=== PATIENT | male | born 2000 | race Caucasian/White ===

== ENCOUNTER 2019-04-30 14:39 | Emergency (ER) | payer SELFPAY ==
[~2019-04-30] VITALS: Ht 193 cm; Wt 125.0 kg
[2019-04-30 15:30] VITALS: BP 129/66
--- NOTE | 2019-04-30 15:51 | PHYS DOC ---
Past Medical History Past Medical History: No Pertinent History Past Surgical History: Other Additional Past Surgical Histo: testicle surgery @1 years of age Alcohol Use: Occasionally Adult General Chief Complaint Chief Complaint: EYE PROBLEMS HPI HPI Patient is a 18 year old male who presents with patient states that 2100 last night he saw flashing light in the right eye and then everything went dark. States he went down toward his mother and told him to go back to sleep and see how it is in the morning. States this morning when he opened He saw only shadows in some light. States the light is somewhat headache. States that he has a generalized headache of 5 out of 10. Denies dizziness, nausea, vomiting, abdominal pain, diarrhea, fevers, recent illness, numbness or tingling, weaknesses, chest pain, shortness of breath. Review of Systems Review of Systems HENT: Right eye vision loss. Denies nasal congestion or sore throat [] All other systems were reviewed and found to be within normal limits, except as documented in this note. Physical Exam Physical Exam Constitutional: Well developed, well nourished, no acute distress, non-toxic appearance. [] HENT: Normocephalic, atraumatic, bilateral external ears normal, oropharynx moist, no oral exudates, nose normal. [] Eyes: PERRLA, EOMI, conjunctiva normal, no discharge. Right eye vision loss. [] Neck: Normal range of motion, no tenderness, supple, no stridor. [] Cardiovascular:Heart rate regular rhythm, no murmur [] Lungs & Thorax: Bilateral breath sounds clear to auscultation [] Abdomen: Bowel sounds normal, soft, no tenderness, no masses, no pulsatile masses. [] Skin: Warm, dry, no erythema, no rash. [] Back: No tenderness, no CVA tenderness. [] Extremities: No tenderness, no cyanosis, no clubbing, ROM intact, no edema. [] Neurologic: Alert and oriented X 3, normal motor function, normal sensory function, no focal deficits noted. [] Psychologic: Affect normal, judgement normal, mood normal. [] Current Patient Data Vital Signs Vital Signs Date Time Temp Pulse Resp B/P (MAP) Pulse Ox O2 Delivery O2 Flow Rate FiO2 04/30/19 15:13 97.9 93 18 145/79 (101) 99 Room Air 97.9 EKG EKG [] Radiology/Procedures Radiology/Procedures [] Course & Med Decision Making Course & Med Decision Making Alert and oriented. Visual acuities for the right eye the patient can only see a shadow of the big "E" on the first line. Left eye is 20/20. PERRLA. Patient can follow my finger with eyes only. No nystagmus. Ambulatory with a steady gait. Speaks in full clear sentences. Moves all extremities without difficulty. Vital signs within normal limits. Patient denies any pain in the actual eye. Denies any injury to the eye. I've spoken to printing estimator Dr. Johnson. He states this and the patient over immediately and no further workup is needed in the ER at this time. Patient Rubber Vulcanizing Machine Operator is taking the patient over to the eye clinic at this time. Dragon Disclaimer Dragon Disclaimer This electronic medical record was generated, in whole or in part, using a voice recognition dictation system. Departure Departure Impression: Primary Impression: Vision loss of right eye Disposition: 01 HOME, SELF-CARE Condition: STABLE Referrals: NO PCP (PCP) TERRY JOHNSON MD Patient Instructions: Medical Screening Exam Additional Instructions: Go straight to the eye clinic. SRIRAM MASTERS SUPERVISOR ROUGH END Apr 30, 2019 15:51
== END 2019-04-30 15:55 | disposition home or self-care (01) ==
LOC: ER 14:39
DX: H54.61 Unqualified visual loss, right eye, normal vision left eye (principal); R51 Headache; Z98.890 Other specified postprocedural states
CPT/HCPCS: 99284

== ENCOUNTER 2021-03-08 06:32 | Emergency (ER) | payer SELFPAY ==
[~2021-03-08] VITALS: Ht 198.1 cm; Wt 109.2 kg
[2021-03-08 08:21] VITALS: BP 154/100
[2021-03-08] MEDS ORDERED: CLIN150C16 PO (08:49)
--- NOTE | 2021-03-08 08:49 | ED.ADGEN ---
Past Medical History Past Medical History: No Pertinent History Past Surgical History: Other Additional Past Surgical Histo: testicle surgery @1 years of age Smoking Status: Never Smoker Alcohol Use: Occasionally General Adult EDM: Chief Complaint: SKIN RASH/ABSCESS HPI: HPI: Patient is a 20 year old male coming in for a rash to his face for 2 days. Says it started by his right nose and is spread to his entire face and upper neck. Says it feels tight but does not itch or burn. Denies any scratches to his face. 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 No systemic complaints. Review of Systems: Review of Systems: All other systems within normal limits except for as noted in the HPI Allergies: Allergies: Allergies Coded Allergies Type Severity Reaction Last Updated Verified fluoxetine Allergy Intermediate 03/08/21 Yes Physical Exam: PE: Constitutional: Well developed, well nourished, no acute distress, non-toxic appearance. [] HENT: Normocephalic, atraumatic, bilateral external ears normal, nose normal. [] Eyes: PERRLA, conjunctiva normal, no discharge. [] Neck: No rigidity, supple, no stridor. [] Cardiovascular: Regular rate and rhythm, brisk cap refill [] Lungs & Thorax: Non labored symmetric respirations, no tachypnea or respiratory distress [] Abdomen: Soft, nondistended. Skin: Warm, dry, no crusting or fluctuance. Mild, blanching erythema to face Back: Unremarkable Extremities: No deformities, range of motion grossly intact, no lower extremity edema [] Neurologic: Alert and oriented X 3, no focal deficits noted. [] Psychologic: Affect normal, judgement normal, mood normal. [] Current Patient Data: Vital Signs: Vital Signs Date Time Temp Pulse Resp B/P (MAP) Pulse Ox O2 Delivery O2 Flow Rate FiO2 03/08/21 08:21 97.9 81 18 154/100 (118) 100 Room Air 97.9 EKG: EKG: [] Heart Score: C/O Chest Pain: No Risk Factors: Risk Factors: DM, Current or recent (<one month) smoker, HTN, HLP, family history of CAD, obesity. Risk Scores: Score 0 - 3: 2.5% MACE over next 6 weeks - Discharge Home Score 4 - 6: 20.3% MACE over next 6 weeks - Admit for Clinical Observation Score 7 - 10: 72.7% MACE over next 6 weeks - Early Invasive Strategies Radiology/Procedures: Radiology/Procedures: [] Course & Med Decision Making: Course & Med Decision Making Pertinent Labs and Imaging studies reviewed. (See chart for details) [] Dragon Disclaimer: Dragon Disclaimer: This electronic medical record was generated, in whole or in part, using a voice recognition dictation system. Departure Departure Impression: Primary Impression: Rash of face Disposition: HOME / SELF CARE / HOMELESS Condition: STABLE Referrals: NO PCP (PCP) Patient Instructions: Rash Scripts Clindamycin Hcl (CLINDAMYCIN HCL) 150 Mg Capsule 3 CAP PO Q8HRS for antibiotic for 10 Days, #90 CAP Prov: ALBIN SPEARS MD 03/08/21 ALBIN SPEARS MD Mar 08, 2021 08:49
== END 2021-03-08 08:54 | disposition home or self-care (01) ==
LOC: ER 06:32
DX: R21 Rash and other nonspecific skin eruption (principal); Z53.21 Procedure and treatment not carried out due to patient leaving prior to being seen by health care provider
CPT/HCPCS: 99283